=== PATIENT | female | born 1990 | race Two or more races ===

== ENCOUNTER 2017-03-28 17:11 | Inpatient (IN) | payer OTHER, BC ==
[~2017-03-28] VITALS: Ht 162.6 cm; Wt 65.4 kg
[2017-03-28] MEDS ORDERED: SODIUM CHLORIDE FLUSH 10ML SYR IVF ONE (18:00)
[2017-03-28 18:07] LABS: BASOPHILS # (AUTO) 0.04 x10^3/uL (0-0.1); BASOPHILS % (AUTO) 0 % (0-1); EOSINOPHILS # (AUTO) 0.04 x10^3/uL (0-0.4); EOSINOPHILS % (AUTO) 0 % (1-7); LYMPHOCYTES # (AUTO) 1.73 x10^3/uL (1-3.4); LYMPHOCYTES % (AUTO) 16 % (22-44); MD NO; MEAN CORPUSCULAR HGB CONC 33.5 g/dL (32.4-35.8); MEAN CORPUSCULAR VOLUME 98.3 fL (80-100); MEAN PLATELET VOLUME 9.3 fL (7.4-10.4); MONOCYTES # (AUTO) 0.48 x10^3/uL (0.2-0.8); MONOCYTES % (AUTO) 4 % (2-9); NEUTROPHILS # (AUTO) 8.74 x10^3/uL (1.8-6.8); NEUTROPHILS % (AUTO) 79 % (42-75); PLATELET COUNT 182 x10^3/uL (130-400); RED BLOOD COUNT 4.03 x10^6/uL (3.82-5.3); RED CELL DISTRIBUTION WIDTH 12.3 % (9.6-15.2)
[2017-03-28 18:19] LABS: ALANINE AMINOTRANSFERASE 17 U/L (12-78); ALBUMIN 2.9 g/dL (3.4-5.0); ANION GAP 7 mmol/L (5-15); CALCIUM 8.2 mg/dL (8.5-10.1); CHLORIDE 107 mmol/L (98-107)
[2017-03-28 18:22] LABS: ALKALINE PHOSPHATASE 107 U/L (45-117); BILIRUBIN,TOTAL 0.3 mg/dL (0.2-1.0); CREATININE 0.67 mg/dL (0.55-1.02); TOTAL PROTEIN 6.7 g/dL (6.4-8.2)
[2017-03-28 18:54] LABS: INTERNATIONAL NORMALIZED RATIO 0.92 (0.93-1.1); PROTHROMBIN TIME 9.6 Seconds (9.6-11.5)
[2017-03-28 22:54] LABS: MICROSCOPIC INDICATED
[2017-03-28] MEDS ORDERED: SODIUM CHLORIDE FLUSH 10ML SYR IVF PRN (23:00)
[2017-03-28 23:02] LABS: CULTURE INDICATED? YES
[2017-03-28 23:31] VITALS: BP 100/66
[2017-03-29] MEDS ORDERED: DOCUSATE 100 MG CAPSULE PO PRN
[2017-03-29] MEDS ORDERED: hydrALAzine 20 MG/ML, 1ML IVPush PRN
[2017-03-29] MEDS ORDERED: POTASSIUM CHLORIDE 20 MEQ TAB.ER.PRT PO ONE
[2017-03-29 04:19] VITALS: BP 97/64
[2017-03-29 06:05] LABS: BASOPHILS # (AUTO) 0.02 x10^3/uL (0-0.1); BASOPHILS % (AUTO) 0 % (0-1); EOSINOPHILS # (AUTO) 0.06 x10^3/uL (0-0.4); EOSINOPHILS % (AUTO) 1 % (1-7); LYMPHOCYTES % (AUTO) 20 % (22-44); MD NO; MEAN CORPUSCULAR HGB CONC 33.6 g/dL (32.4-35.8); MEAN CORPUSCULAR VOLUME 98.3 fL (80-100); MEAN PLATELET VOLUME 9.9 fL (7.4-10.4); MONOCYTES # (AUTO) 0.66 x10^3/uL (0.2-0.8); MONOCYTES % (AUTO) 7 % (2-9); NEUTROPHILS # (AUTO) 7.06 x10^3/uL (1.8-6.8); NEUTROPHILS % (AUTO) 72 % (42-75); PLATELET COUNT 168 x10^3/uL (130-400); RED BLOOD COUNT 3.76 x10^6/uL (3.82-5.3); RED CELL DISTRIBUTION WIDTH 12.4 % (9.6-15.2)
[2017-03-29 06:16] LABS: ALBUMIN 2.7 g/dL (3.4-5.0); ANION GAP 7 mmol/L (5-15); CHLORIDE 109 mmol/L (98-107)
[2017-03-29 06:19] LABS: ALANINE AMINOTRANSFERASE 16 U/L (12-78); ALKALINE PHOSPHATASE 109 U/L (45-117); BILIRUBIN,TOTAL 0.3 mg/dL (0.2-1.0); CHOLESTEROL, TOTAL 180 mg/dL (140-239); CREATININE 0.51 mg/dL (0.55-1.02); HDL CHOL % 49 % (28-40); HDL CHOLESTEROL (DIRECT) 88 mg/dL (40-60); LDL CHOLESTEROL,CALCULATED 74 mg/dL (54-169); LDL/HDL RATIO 0.8 (0.5-3.0); TOTAL PROTEIN 6.6 g/dL (6.4-8.2); TRIGLYCERIDES 91 mg/dL (50-200); VLDL CHOLESTEROL 18 mg/dL (0-25)
[2017-03-29 06:24] LABS: HEMOGLOBIN A1C 5.2 % (4.2-6.3)
[2017-03-29 06:28] LABS: C-REACTIVE PROTEIN, QUANT 0.26 mg/dL (0.02-0.49); FREE T4 (FREE THYROXINE) 1.21 ng/dL (0.76-1.46); THYROID STIMULATING HORMONE 1.28 mIU/L (0.358-3.740)
[2017-03-29 06:39] LABS: HCT (SEDRATE) 36.9 % (34.6-47.8)
[2017-03-29] MEDS: ACETAMINOPHEN 325 MG TABLET PO PRN ×2 (06:44→16:41)
[2017-03-29 06:55] LABS: THROMBIN TIME 17.3 Seconds (14-19)
[2017-03-29 06:59] VITALS: BP 100/66
[2017-03-29 06:59] LABS: FIBRINOGEN 338 mg/dL (200-340)
[2017-03-29 07:22] LABS: PARTIAL THROMBOPLASTIN TIME 28 Seconds (25-31)
[2017-03-29 08:04] LABS: PROTHROMBIN TIME 9.5 Seconds (9.6-11.5)
[2017-03-29 09:42] VITALS: BP 95/56
[2017-03-29 14:37] VITALS: BP 113/68
[2017-03-29 18:36] VITALS: BP 110/72
== END 2017-03-29 18:51 | disposition home or self-care (01) | DRG 781 ==
LOC: ED 19:54 → EDIP 22:51 → 3NE 23:22
PROVIDERS: ADMIT Internal Medicine; ATTEND Internal Medicine
DX: O26.893 Other specified pregnancy related conditions, third trimester (principal); D68.62 Lupus anticoagulant syndrome; H53.121 Transient visual loss, right eye; O99.113 Other diseases of the blood and blood-forming organs and certain disorders involving the immune mechanism complicating pregnancy, third trimester; E87.6 Hypokalemia; O99.283 Endocrine, nutritional and metabolic diseases complicating pregnancy, third trimester; Z3A.33 33 weeks gestation of pregnancy; Z83.2 Family history of diseases of the blood and blood-forming organs and certain disorders involving the immune mechanism
CPT/HCPCS: 36415; 70540; 80053; 80061; 81001; 81240; 81241; 83036; 83090; 83516; 83520; 83735; 84439; 84443; 85025; 85301; 85302; 85303; 85305; 85306; 85307; 85379; 85384; 85610; 85613; 85651; 85670; 85705; 85730; 85732; 86038; 86140; 86146; 86147; 86148; 86160; 86225; 86235; 86255; 86256; 86376; 86431; 87086; 93880

== ENCOUNTER 2017-05-07 21:35 | Outpatient (CLI) | payer OTHER, BC ==
[~2017-05-07] VITALS: Ht 162.6 cm; Wt 66.0 kg
== END 2017-05-07 22:40 | disposition home or self-care (01) ==
LOC: LDOP 21:35
PROVIDERS: ATTEND Obstetrics & Gynecology
DX: O99.513 Diseases of the respiratory system complicating pregnancy, third trimester (principal); O26.893 Other specified pregnancy related conditions, third trimester; Z3A.39 39 weeks gestation of pregnancy
CPT/HCPCS: 59025; 99211; G0463

== ENCOUNTER 2017-05-09 06:11 | Outpatient (CLI) | payer OTHER, BC ==
[~2017-05-09] VITALS: Ht 162.6 cm; Wt 65.4 kg
[2017-05-09 06:22] VITALS: BP 109/70
[2017-05-09] MEDS ORDERED: PROMETHAZINE 25 MG/ML, 1ML ONE (07:15)
[2017-05-09] MEDS ORDERED: MEPERIDINE/PF 100 MG/ML ONE (07:15)
[2017-05-09] MEDS ORDERED: PROMETHAZINE 25 MG/ML, 1ML IM ONE (07:30)
[2017-05-09] MEDS ORDERED: MEPERIDINE/PF 50 MG/ML IM PRN (07:30)
== END 2017-05-09 09:26 | disposition home or self-care (01) ==
LOC: LDOP 06:11
PROVIDERS: ATTEND Obstetrics & Gynecology
DX: O42.92 Full-term premature rupture of membranes, unspecified as to length of time between rupture and onset of labor (principal); Z3A.39 39 weeks gestation of pregnancy
CPT/HCPCS: 59025; 99211; J2175; J2550; G0463

== ENCOUNTER 2017-05-09 10:23 | Inpatient (IN) | payer OTHER, BC ==
[~2017-05-09] VITALS: Ht 162.6 cm; Wt 65.5 kg
[2017-05-09] MEDS ORDERED: AMPICILLIN 2 GM in SODIUM CHLORIDE 0.9% 100 ML IVPB STA (11:07)
[2017-05-09] MEDS ORDERED: OXYTOCIN 30U/ 0.9% NaCL 500ML 500 ML IV ONE (11:07)
[2017-05-09] MEDS ORDERED: LIDOCAINE 1%, 20ML ONE (11:21)
[2017-05-09] MEDS ORDERED: MISOPROSTOL 200 MCG TABLET ONE (11:21)
[2017-05-09] MEDS ORDERED: OXYTOCIN 30U/ 0.9% NaCL 500ML 500 ML ONE (11:21)
[2017-05-09] MEDS ORDERED: NEWBORN KIT ONE (11:21)
[2017-05-09] MEDS ORDERED: SODIUM CITRATE/CITRIC ACID 30 ML UDC PO PRN (11:30)
[2017-05-09] MEDS: PLEASE ENTER HEIGHT AND WEIGHT MC SCH ×2 (11:30→19:30)
[2017-05-09] MEDS ORDERED: FENTANYL PF 100 MCG/2ML IV PRN (11:30)
[2017-05-09] MEDS ORDERED: FENTANYL PF 100 MCG/2ML IVPush PRN (11:30)
[2017-05-09] MEDS ORDERED: ONDANSETRON 2MG/ML, 2ML IVPush PRN (11:30)
[2017-05-09 11:46] LABS: BASOPHILS # (AUTO) 0.02 x10^3/uL (0-0.1); BASOPHILS % (AUTO) 0 % (0-1); EOSINOPHILS # (AUTO) 0.02 x10^3/uL (0-0.4); EOSINOPHILS % (AUTO) 0 % (1-7); LYMPHOCYTES % (AUTO) 12 % (22-44); MD NO; MEAN CORPUSCULAR HEMOGLOBIN 32.6 pg (27.0-34.8); MEAN CORPUSCULAR VOLUME 95.9 fL (80-100); MEAN PLATELET VOLUME 9.9 fL (7.4-10.4); MONOCYTES # (AUTO) 0.74 x10^3/uL (0.2-0.8); MONOCYTES % (AUTO) 6 % (2-9); NEUTROPHILS # (AUTO) 10.63 x10^3/uL (1.8-6.8); NEUTROPHILS % (AUTO) 82 % (42-75); PLATELET COUNT 181 x10^3/uL (130-400); RED BLOOD COUNT 4.11 x10^6/uL (3.82-5.3); RED CELL DISTRIBUTION WIDTH 12.5 % (9.6-15.2)
[2017-05-09] MEDS ORDERED: FENTANYL PF 100 MCG/2ML ONE (11:59)
[2017-05-09] MEDS ORDERED: LIDOCAINE-MPF 2% ,5ML ONE (14:32)
[2017-05-09] MEDS ORDERED: FENTANYL/BUPIV./NS/PF 250 ML EPIDCONT ONE (14:33)
[2017-05-09] MEDS ORDERED: BUPIVACAINE 0.25% ONE (14:38)
[2017-05-09] MEDS ORDERED: FENTANYL/BUPIV./NS/PF 250 ML EPIDCONT SCH (15:00)
[2017-05-09] MEDS ORDERED: LACTATED RINGERS 1,000 ML IVBOLUS PRN (15:00)
[2017-05-09] MEDS: EPHEDRINE 50 MG/ML, 1ML IVPush PRN ×2 (15:07→23:48)
[2017-05-09] MEDS: LACTATED RINGERS 1,000 ML IV SCH ×4 (15:24→23:39)
[2017-05-09] MEDS ORDERED: OXYTOCIN 30U/ 0.9% NaCL 500ML 500 ML IV PRN (15:29)
[2017-05-09] MEDS: D5%-LACTATED RINGERS 1,000 ML IV SCH ×2 (19:07→23:39)
[2017-05-09 19:30] VITALS: BP 103/63
[2017-05-09] MEDS: AMPICILLIN 1 GM in SODIUM CHLORIDE 0.9% 50 ML IVPB SCH ×2 (19:44→23:44)
[2017-05-10] MEDS ORDERED: SODIUM CITRATE/CITRIC ACID 30 ML UDC ONE (00:06)
[2017-05-10] MEDS: D5%-LACTATED RINGERS 1,000 ML IV SCH ×2 (03:07→11:07)
[2017-05-10] MEDS: AMPICILLIN 1 GM in SODIUM CHLORIDE 0.9% 50 ML IVPB SCH ×4 (03:28→11:30)
[2017-05-10] MEDS ORDERED: ACETAMINOPHEN 325 MG TABLET ONE (03:57)
[2017-05-10] MEDS ORDERED: ACETAMINOPHEN 325 MG TABLET PO PRN (04:00)
[2017-05-10] MEDS: LACTATED RINGERS 1,000 ML IV SCH ×3 (08:00→16:00)
[2017-05-10] MEDS: OXYTOCIN 30U/ 0.9% NaCL 500ML 500 ML IV SCH ×2 (10:14→20:14)
[2017-05-10] MEDS ORDERED: MISOPROSTOL 200 MCG TABLET PR PRN (10:30)
[2017-05-10] MEDS ORDERED: OXYcodone/APAP 5/325MG TABLET PO PRN (10:30)
[2017-05-10 13:45] VITALS: BP 110/69
[2017-05-10] MEDS: OXYcodone/APAP 5/325MG TABLET PO PRN ×2 (15:19→20:47)
[2017-05-10] MEDS: IBUPROFEN 600 MG TABLET PO PRN (15:19)
[2017-05-10 16:30] VITALS: BP 106/73
[2017-05-10 18:54] LABS: BASOPHILS # (AUTO) 0.03 x10^3/uL (0-0.1); BASOPHILS % (AUTO) 0 % (0-1); EOSINOPHILS # (AUTO) 0.06 x10^3/uL (0-0.4); EOSINOPHILS % (AUTO) 1 % (1-7); LYMPHOCYTES # (AUTO) 1.42 x10^3/uL (1-3.4); LYMPHOCYTES % (AUTO) 11 % (22-44); MD NO; MEAN CORPUSCULAR HEMOGLOBIN 33.2 pg (27.0-34.8); MEAN CORPUSCULAR HGB CONC 33.7 g/dL (32.4-35.8); MEAN CORPUSCULAR VOLUME 98.5 fL (80-100); MEAN PLATELET VOLUME 10.2 fL (7.4-10.4); MONOCYTES # (AUTO) 0.88 x10^3/uL (0.2-0.8); MONOCYTES % (AUTO) 7 % (2-9); NEUTROPHILS # (AUTO) 10.68 x10^3/uL (1.8-6.8); NEUTROPHILS % (AUTO) 82 % (42-75); PLATELET COUNT 147 x10^3/uL (130-400); RED BLOOD COUNT 3.46 x10^6/uL (3.82-5.3); RED CELL DISTRIBUTION WIDTH 12.8 % (9.6-15.2)
[2017-05-10 19:38] VITALS: BP 98/58
[2017-05-10] MEDS: DOCUSATE 100 MG CAPSULE PO PRN (20:47)
[2017-05-11 00:14] VITALS: BP 99/60
[2017-05-11 03:40] VITALS: BP 96/64
[2017-05-11] MEDS: IBUPROFEN 600 MG TABLET PO PRN ×3 (04:04→18:11)
[2017-05-11] MEDS: OXYTOCIN 30U/ 0.9% NaCL 500ML 500 ML IV SCH ×2 (06:14→14:00)
[2017-05-11 07:55] VITALS: BP 108/73
[2017-05-11] MEDS: LACTATED RINGERS 1,000 ML IV SCH ×3 (08:00→14:00)
[2017-05-11] MEDS: DOCUSATE 100 MG CAPSULE PO PRN ×2 (08:14→21:05)
[2017-05-11] MEDS: PRENATAL VIT/IRON/FA 1 EACH TABLET PO SCH (08:14)
[2017-05-11] MEDS: OXYcodone/APAP 5/325MG TABLET PO PRN (08:14)
[2017-05-11 11:58] VITALS: BP 108/68
[2017-05-11 20:50] VITALS: BP 96/63
[2017-05-12] MEDS: IBUPROFEN 600 MG TABLET PO PRN ×3 (00:25→13:31)
[2017-05-12] MEDS: OXYTOCIN 30U/ 0.9% NaCL 500ML 500 ML IV SCH ×2 (02:14→12:14)
[2017-05-12] MEDS: PRENATAL VIT/IRON/FA 1 EACH TABLET PO SCH (07:27)
[2017-05-12] MEDS: DOCUSATE 100 MG CAPSULE PO PRN (07:27)
[2017-05-12 07:35] VITALS: BP 123/80
[2017-05-12] MEDS: LACTATED RINGERS 1,000 ML IV SCH ×2 (08:00)
[2017-05-12] MEDS ORDERED: IBUP200T49 PO (12:47)
[2017-05-12] MEDS: OXYcodone/APAP 5/325MG TABLET PO PRN (13:31)
== END 2017-05-12 13:43 | disposition home or self-care (01) | DRG 775 ==
LOC: LDOP 10:23 → LDIP 11:08 → 2NW 05-10 13:16
PROVIDERS: ADMIT Obstetrics & Gynecology; ATTEND Obstetrics & Gynecology
PROC: 10E0XZZ Delivery of Products of Conception, External Approach (ICD-10-PCS; principal; 2017-05-10)
PROC: 0KQM0ZZ Repair Perineum Muscle, Open Approach (ICD-10-PCS; 2017-05-10)
DX: O63.0 Prolonged first stage (of labor) (principal); O70.1 Second degree perineal laceration during delivery; O76 Abnormality in fetal heart rate and rhythm complicating labor and delivery; O99.824 Streptococcus B carrier state complicating childbirth; Z37.0 Single live birth
CPT/HCPCS: 36415; 85025; 86850; 86900; J0290; J3010; J3490; J2590; J7120; J7121

== ENCOUNTER 2018-07-01 19:01 | Emergency (ER) | payer BC, OTHER ==
[~2018-07-01] VITALS: Ht 162.6 cm; Wt 57.4 kg
[~2018-07-01 19:01] MED LIST: IBUP200T49 PO
[2018-07-01 20:00] LABS: MICROSCOPIC NOT IND
[2018-07-01 20:06] LABS: CULTURE INDICATED? NO
[2018-07-01 20:53] LABS: BASOPHILS # (AUTO) 0.04 x10^3/uL (0-0.1); BASOPHILS % (AUTO) 0 % (0-1); EOSINOPHILS # (AUTO) 0.06 x10^3/uL (0-0.4); EOSINOPHILS % (AUTO) 1 % (1-7); LYMPHOCYTES # (AUTO) 2.93 x10^3/uL (1-3.4); LYMPHOCYTES % (AUTO) 30 % (22-44); MD NO; MEAN CORPUSCULAR HEMOGLOBIN 32.3 pg (27.0-34.8); MONOCYTES # (AUTO) 0.59 x10^3/uL (0.2-0.8); MONOCYTES % (AUTO) 6 % (2-9); NEUTROPHILS # (AUTO) 6.15 x10^3/uL (1.8-6.8); NEUTROPHILS % (AUTO) 63 % (42-75); PLATELET COUNT 257 x10^3/uL (130-400); RED BLOOD COUNT 4.38 x10^6/uL (3.82-5.3); RED CELL DISTRIBUTION WIDTH 12.9 % (9.6-15.2)
[2018-07-01 21:04] LABS: ALBUMIN 4.2 g/dL (3.4-5.0); ANION GAP 6 mmol/L (5-15); CALCIUM 9.3 mg/dL (8.5-10.1); CHLORIDE 105 mmol/L (98-107)
[2018-07-01 21:24] LABS: ALANINE AMINOTRANSFERASE 20 U/L (12-78); ALKALINE PHOSPHATASE 88 U/L (45-117); BILIRUBIN,TOTAL 0.2 mg/dL (0.2-1.0); CREATININE 0.74 mg/dL (0.55-1.02); TOTAL PROTEIN 7.7 g/dL (6.4-8.2)
[2018-07-01] MEDS ORDERED: PREN1TAB62 PO (21:56)
[2018-07-01 21:58] VITALS: BP 125/81
== END 2018-07-01 22:01 | disposition home or self-care (01) ==
LOC: ED 21:55
DX: O26.891 Other specified pregnancy related conditions, first trimester (principal); K42.9 Umbilical hernia without obstruction or gangrene; Z3A.01 Less than 8 weeks gestation of pregnancy
CPT/HCPCS: 36415; 76801; 80053; 81003; 84702; 85025; 99284

== ENCOUNTER 2018-07-14 13:32 | Day surgery (SDC) | payer OTHER ==
[~2018-07-14] VITALS: Ht 162.6 cm; Wt 55.9 kg
[~2018-07-14 13:32] MED LIST changes: +BUPIVACAINE/PF-EPI 0.5% 1:200K ONE; +PREN1TAB62 PO
[2018-07-14] MEDS ORDERED: FENTANYL PF 250 MCG/5ML ONE (13:59)
[2018-07-14] MEDS ORDERED: MIDAZOLAM 1 MG/ML, 2ML ONE (13:59)
[2018-07-14 14:17] VITALS: BP 110/71
[2018-07-14] MEDS ORDERED: ACETAMINOPHEN 500 MG TABLET ONE (14:28)
[2018-07-14] MEDS ORDERED: GABAPENTIN 300 MG CAPSULE ONE (14:28)
[2018-07-14 14:29] LABS: HCG UR SG 1.034 (1.003-1.030)
[2018-07-14] MEDS ORDERED: SCOPOLAMINE PATCH, 1.5MG PATCH.TD72 TD ONE ×2 (14:29→14:30)
[2018-07-14] MEDS ORDERED: ACETAMINOPHEN 500 MG TABLET PO ONE (14:30)
[2018-07-14] MEDS ORDERED: GABAPENTIN 300 MG CAPSULE PO ONE (14:30)
[2018-07-14] MEDS ORDERED: LACTATED RINGERS 1,000 ML IV SCH (14:32)
[2018-07-14] MEDS ORDERED: FENTANYL PF 100 MCG/2ML IV PRN (15:00)
[2018-07-14] MEDS ORDERED: PROMETHAZINE 25 MG/ML, 1ML IM PRN ×2 (15:00)
[2018-07-14] MEDS ORDERED: PROMETHAZINE 25 MG SUPP PR PRN (15:00)
[2018-07-14] MEDS ORDERED: PROMETHAZINE 25 MG/ML, 1ML IV PRN (15:00)
[2018-07-14] MEDS ORDERED: HYDROmorphone 2 MG/ML, 1ML IVPush PRN (15:00)
[2018-07-14] MEDS ORDERED: OXYcodone 5 MG/5 ML ORAL.SOL UDC PO PRN ×2 (15:00→16:00)
[2018-07-14] MEDS ORDERED: MEPERIDINE/PF 25MG/0.5ML IVPush PRN (15:00)
[2018-07-14] MEDS ORDERED: MORPHINE SULFATE 4 MG/ML, 1ML IVPush PRN (15:00)
[2018-07-14] MEDS ORDERED: ONDANSETRON 2MG/ML, 2ML IV PRN (15:00)
[2018-07-14] MEDS ORDERED: LABETALOL 5 MG/ML SYRINGE IV PRN (15:00)
[2018-07-14] MEDS ORDERED: hydrALAzine 20 MG/ML, 1ML IV PRN (15:00)
[2018-07-14] MEDS ORDERED: ONDANSETRON ODT 8 MG PO PRN (15:00)
[2018-07-14] MEDS ORDERED: PROMETHAZINE 12.5 MG SUPP PR PRN (15:00)
[2018-07-14] MEDS ORDERED: ONDANSETRON 2MG/ML, 2ML ONE (15:26)
[2018-07-14] MEDS ORDERED: DEXAMETHASONE 4 MG/ML, 1ML ONE (15:26)
[2018-07-14] MEDS ORDERED: ROCURONIUM 10MG/ML,5ML ONE (15:26)
[2018-07-14] MEDS ORDERED: PROPOFOL 10 MG/ML, 20ML ONE (15:26)
[2018-07-14] MEDS ORDERED: GLYCOPYRROLATE 0.2MG/1ML, 5ML ONE (15:26)
[2018-07-14] MEDS ORDERED: CEFAZOLIN 1,000 MG ONE (15:26)
[2018-07-14] MEDS ORDERED: NEOSTIGMINE 1 MG/ML, 10ML ONE (15:26)
[2018-07-14] MEDS ORDERED: MEPERIDINE/PF 25MG/ML,1ML ONE (15:44)
[2018-07-14] MEDS ORDERED: OXYcodone 5 MG/5 ML ORAL.SOL UDC ONE (15:44)
== END 2018-07-14 17:37 | disposition home or self-care (01) ==
LOC: OR 13:32
PROVIDERS: ATTEND Surgery
DX: K42.9 Umbilical hernia without obstruction or gangrene (principal); Z98.890 Other specified postprocedural states
CPT/HCPCS: 49585; 81025; J0690; J1100; J2175; J2250; J2405; J2704; J2710; J3010; J7120

== ENCOUNTER 2019-03-31 10:34 | Emergency (ER) | payer OTHER ==
[~2019-03-31] VITALS: Ht 162.6 cm; Wt 64.8 kg
[~2019-03-31 10:34] MED LIST changes: -BUPIVACAINE/PF-EPI 0.5% 1:200K ONE
--- NOTE | 2019-03-31 10:50 | NUR ---
THIS IS A 29 YO FEMALE WHO PRESENTS TO THE ER C/O COUGH X 3 WEEKS WITH INTERMITTENT SOB STARTING TODAY. PT REPORTS TIGHTNESS AND "STUFFINESS" IN CHEST. PT STATES IT IS WORSE WITH STANDING AND BETTER AT REST. PT ALSO C/O MILD ABD CRAMPING. DENIES DISCHARGE. HEART TONES CHECKED BY L&D RN AND NOTED TO BE 150-165 AND STRONG. PT AO X 4. SKIN PWD. RESP EVEN AND UNLABORED. OCCAISIONAL DRY COUGH NOTED. PT REPORTS HER COUGH IS "50/50 WITH GUNK AND JUST DRY SOME OF THE TIME". PT ABLE TO SPEAK IN FULL 10-12 WORD SENTENCES W/O DIFFICULTY.
[2019-03-31] MEDS ORDERED: SODIUM CHLORIDE 0.9% 1,000ML IVBOLUS ONE (11:00)
[2019-03-31 11:23] LABS: BASOPHILS # (AUTO) 0.02 x10^3/uL (0-0.1); BASOPHILS % (AUTO) 0 % (0-1); EOSINOPHILS # (AUTO) 0.07 x10^3/uL (0-0.4); EOSINOPHILS % (AUTO) 1 % (1-7); LYMPHOCYTES # (AUTO) 1.27 x10^3/uL (1-3.4); LYMPHOCYTES % (AUTO) 14 % (22-44); MD NO; MEAN CORPUSCULAR HEMOGLOBIN 32.9 pg (27.0-34.8); MEAN CORPUSCULAR HGB CONC 33.3 g/dL (32.4-35.8); MEAN CORPUSCULAR VOLUME 98.6 fL (80-100); MEAN PLATELET VOLUME 9.3 fL (7.4-10.4); MONOCYTES % (AUTO) 5 % (2-9); NEUTROPHILS # (AUTO) 7.37 x10^3/uL (1.8-6.8); NEUTROPHILS % (AUTO) 80 % (42-75); PLATELET COUNT 204 x10^3/uL (130-400); RED BLOOD COUNT 3.98 x10^6/uL (3.82-5.3); RED CELL DISTRIBUTION WIDTH 13.3 % (9.6-15.2)
[2019-03-31 11:30] LABS: ALBUMIN 2.7 g/dL (3.4-5.0); ANION GAP 8 mmol/L (5-15); CALCIUM 8.4 mg/dL (8.5-10.1); CHLORIDE 111 mmol/L (98-107)
--- NOTE | 2019-03-31 11:45 | NUR ---
US AT BEDSIDE. PT RESTING ON GURNEY. NAD NOTED. SKIN PWD. RESP EVEN AND UNLABORED. PT ABLE TO SPEAK IN FULL 10-12 WORD SENTENCES W/O DIFFICULTY. PT AO X 4. SKIN PWD. AT BEDSIDE. CALL LIGHT WITHIN REACH. WILL CONT TO MONITOR PT.
--- NOTE | 2019-03-31 12:53 | NUR ---
PT CURRENTLY RESTING ON GURNEY. NAD NOTED. SKIN PWD. RESP EVEN AND UNLABORED. AT BEDSIDE. PT AND AWARE WE ARE WAITING FOR LAB/IMAGING REUSLTS. CALL LIGHT WITHIN REACH. WILL CONT TO MONITOR PT.
--- NOTE | 2019-03-31 13:20 | NUR ---
PT STILL IN IMAGING. Addendum: 03/31/19 at 1320 by JPREMO PT IN IMAGING.
--- NOTE | 2019-03-31 14:00 | NUR ---
PT BACK FROM IMAGING. NAD NOTED. SKIN PWD. RESP EVEN AND UNLABORED. PT ABLE TO SPEAK IN FULL 10-12 WROD SENTENCES W/O DIFFICULTY. PT REQUESTING WATER AND FOOD. OKAY WITH CHRIS TOWNSEND. PT PROVIDED WITH WATER AND BRINGING FOOD.
[2019-03-31 14:38] VITALS: BP 91/53
[2019-03-31] MEDS ORDERED: OMNIPAQUE 350 MG/ML, 100ML BOTTLE ONE (14:45)
== END 2019-03-31 14:41 | disposition home or self-care (01) ==
LOC: ED 12:59
DX: O99.513 Diseases of the respiratory system complicating pregnancy, third trimester (principal); J06.9 Acute upper respiratory infection, unspecified; J45.909 Unspecified asthma, uncomplicated; Z3A.34 34 weeks gestation of pregnancy
CPT/HCPCS: 36415; 71046; 71275; 80048; 82040; 83605; 85025; 85379; 93970; 99284; J7030; Q9967

== ENCOUNTER 2019-03-31 15:00 | Outpatient (CLI) | payer OTHER ==
[~2019-03-31] VITALS: Ht 162.6 cm; Wt 55.0 kg
[2019-03-31 15:31] VITALS: BP 102/64
[2019-03-31] MEDS ORDERED: LOPERAMIDE 2 MG CAPSULE PO PRN (16:00)
[2019-03-31 16:35] LABS: MICROSCOPIC NOT IND
== END 2019-03-31 19:36 | disposition home or self-care (01) ==
LOC: LDOP 15:00
PROVIDERS: ATTEND Obstetrics & Gynecology
DX: O26.893 Other specified pregnancy related conditions, third trimester (principal); R10.9 Unspecified abdominal pain; Z3A.34 34 weeks gestation of pregnancy
CPT/HCPCS: 59025; 81003; 99211; G0463

== ENCOUNTER 2019-04-06 18:17 | Outpatient (CLI) | payer OTHER ==
[~2019-04-06] VITALS: Ht 162.6 cm; Wt 64.5 kg
[2019-04-06 18:45] VITALS: BP 100/62
[2019-04-06] MEDS ORDERED: ONDANSETRON 2MG/ML, 2ML ONE (18:51)
[2019-04-06] MEDS: LACTATED RINGERS 1,000 ML IV SCH ×2 (18:55→20:35)
[2019-04-06] MEDS ORDERED: PLEASE ENTER HEIGHT AND WEIGHT MC SCH (19:00)
[2019-04-06] MEDS ORDERED: ONDANSETRON 2MG/ML, 2ML IVPush PRN (19:00)
[2019-04-06 19:37] LABS: ALANINE AMINOTRANSFERASE 16 U/L (12-78); ALBUMIN 2.7 g/dL (3.4-5.0); ANION GAP 8 mmol/L (5-15); CALCIUM 8.1 mg/dL (8.5-10.1); CHLORIDE 108 mmol/L (98-107); CREATININE 0.59 mg/dL (0.55-1.02)
[2019-04-06 19:39] LABS: ALKALINE PHOSPHATASE 119 U/L (45-117); BILIRUBIN,TOTAL 0.5 mg/dL (0.2-1.0); TOTAL PROTEIN 6.5 g/dL (6.4-8.2)
[2019-04-06 19:54] LABS: BASOPHILS % (AUTO) 0 % (0-1); EOSINOPHILS # (AUTO) 0.02 x10^3/uL (0-0.4); EOSINOPHILS % (AUTO) 0 % (1-7); LYMPHOCYTES # (AUTO) 0.67 x10^3/uL (1-3.4); LYMPHOCYTES % (AUTO) 7 % (22-44); MD NO; MEAN CORPUSCULAR HEMOGLOBIN 32.8 pg (27.0-34.8); MEAN CORPUSCULAR HGB CONC 33.2 g/dL (32.4-35.8); MEAN CORPUSCULAR VOLUME 98.8 fL (80-100); MEAN PLATELET VOLUME 9.5 fL (7.4-10.4); MONOCYTES # (AUTO) 0.39 x10^3/uL (0.2-0.8); MONOCYTES % (AUTO) 4 % (2-9); NEUTROPHILS # (AUTO) 8.58 x10^3/uL (1.8-6.8); NEUTROPHILS % (AUTO) 89 % (42-75); PLATELET COUNT 183 x10^3/uL (130-400); RED BLOOD COUNT 4.06 x10^6/uL (3.82-5.3)
[2019-04-06 20:10] LABS: RAPID INFLUENZA A Negative (Negative); RAPID INFLUENZA B Negative (Negative)
[2019-04-06 20:15] LABS: MICROSCOPIC INDICATED
[2019-04-06] MEDS ORDERED: TERBUTALINE 1 MG/ML, 1ML ONE (20:54)
[2019-04-06] MEDS ORDERED: LACTATED RINGERS 1,000 ML IVBOLUS ONE (21:00)
[2019-04-06] MEDS ORDERED: TERBUTALINE 1 MG/ML, 1ML SQ ONE (21:00)
[2019-04-06] MEDS ORDERED: ONDA4TAB7 PO (22:26)
== END 2019-04-06 22:37 | disposition home or self-care (01) ==
LOC: LDOP 18:17
PROVIDERS: ATTEND Obstetrics & Gynecology
DX: O62.9 Abnormality of forces of labor, unspecified (principal); O21.2 Late vomiting of pregnancy; O09.293 Supervision of pregnancy with other poor reproductive or obstetric history, third trimester; Z3A.35 35 weeks gestation of pregnancy
CPT/HCPCS: 36415; 59025; 80053; 81001; 85025; 87086; 87400; 99211; J2405; J3105; J7120; G0463

== ENCOUNTER 2019-04-29 20:31 | Outpatient (CLI) | payer OTHER ==
[~2019-04-29] VITALS: Ht 162.6 cm; Wt 64.0 kg
[~2019-04-29 20:31] MED LIST changes: +ONDA4TAB7 PO
[2019-04-29] MEDS ORDERED: MEPERIDINE/PF 100 MG/ML ONE (22:52)
[2019-04-29] MEDS ORDERED: MEPERIDINE/PF 100 MG/ML IM PRN (23:00)
[2019-04-29] MEDS ORDERED: PROMETHAZINE 25 MG/ML, 1ML IM ONE (23:00)
[2019-04-30] MEDS ORDERED: IBUP-1222 PO (23:44)
== END 2019-04-29 23:04 | disposition home or self-care (01) ==
LOC: LDOP 20:31
PROVIDERS: ATTEND Obstetrics & Gynecology
DX: O62.9 Abnormality of forces of labor, unspecified (principal); Z3A.38 38 weeks gestation of pregnancy
CPT/HCPCS: 59025; 76819; 96372; 99211; J2175; J2550; G0463

== ENCOUNTER 2019-04-30 03:39 | Inpatient (IN) | payer OTHER ==
[~2019-04-30] VITALS: Ht 162.6 cm; Wt 64.0 kg
[2019-04-30] MEDS ORDERED: NEWBORN KIT ONE (03:47)
[2019-04-30] MEDS ORDERED: OXYTOCIN 30U/ 0.9% NaCL 500ML 500 ML ONE (03:47)
[2019-04-30] MEDS ORDERED: FENTANYL/BUPIV./NS/PF 250 ML EPIDCONT SCH ×2 (03:49→04:46)
[2019-04-30] MEDS ORDERED: LACTATED RINGERS 1,000 ML IV SCH ×2 (03:49→04:46)
[2019-04-30] MEDS ORDERED: OXYTOCIN 30U/ 0.9% NaCL 500ML 500 ML IV ONE (03:49)
[2019-04-30] MEDS ORDERED: D5%-LACTATED RINGERS 1,000 ML IV SCH (03:49)
[2019-04-30] MEDS ORDERED: FENTANYL PF 100 MCG/2ML ONE (03:58)
[2019-04-30] MEDS ORDERED: METOCLOPRAMIDE 5 MG/ML, 2ML IVPush PRN (04:00)
[2019-04-30] MEDS ORDERED: ONDANSETRON 2MG/ML, 2ML IVPush PRN (04:00)
[2019-04-30] MEDS ORDERED: CALCIUM CARBONATE 500 MG TAB.CHEW PO PRN (04:00)
[2019-04-30] MEDS ORDERED: TERBUTALINE 1 MG/ML, 1ML IVPush PRN (04:00)
[2019-04-30] MEDS ORDERED: SODIUM CITRATE/CITRIC ACID 30 ML UDC PO PRN (04:00)
[2019-04-30] MEDS ORDERED: ALUMINUM/MAG/SIMETHICONE 30 ML UDC PO PRN (04:00)
[2019-04-30] MEDS ORDERED: TERBUTALINE 1 MG/ML, 1ML SQ PRN (04:00)
[2019-04-30] MEDS ORDERED: FENTANYL PF 500 MCG, BUPIVACAINE/PF 0.5%, 30ML 62.5 ML in SODIUM CHLORIDE 0.9% 177.5 ML EPIDCONT SCH (04:00)
[2019-04-30] MEDS ORDERED: FENTANYL PF 100 MCG/2ML IVPush PRN (04:00)
[2019-04-30] MEDS ORDERED: FENTANYL PF 100 MCG/2ML IV PRN (04:00)
[2019-04-30 04:15] LABS: MEAN CORPUSCULAR HGB CONC 33.2 g/dL (32.4-35.8); MEAN CORPUSCULAR VOLUME 99.4 fL (80-100); MEAN PLATELET VOLUME 9.8 fL (7.4-10.4); PLATELET COUNT 164 x10^3/uL (130-400); RED BLOOD COUNT 4.07 x10^6/uL (3.82-5.3); RED CELL DISTRIBUTION WIDTH 13.2 % (9.6-15.2)
[2019-04-30] MEDS ORDERED: BUPIVACAINE 0.25% ONE (04:22)
[2019-04-30 04:36] LABS: MD YES
[2019-04-30 04:37] LABS: LYMPH#(MANUAL) 1.34 x10^3/uL (1-3.4); LYMPHS% (MANUAL) 9 % (22-44); MONOS% (MANUAL) 4 % (2-9); SEG#(MANUAL) 12.96 x10^3/uL (1.8-6.8); SEGS% (MANUAL) 87 % (42-75)
[2019-04-30 04:38] LABS: <PLATELET ESTIMATE> ADEQUATE; <PLT MORPHOLOGY> NORMAL PLT MORPH; <RBC MORPHOLOGY> NORMAL
[2019-04-30] MEDS ORDERED: EPHEDRINE 50 MG/ML, 1ML IVPush PRN (05:00)
[2019-04-30] MEDS ORDERED: LACTATED RINGERS 1,000 ML IVBOLUS PRN (05:00)
[2019-04-30] MEDS ORDERED: OXYTOCIN 30U/ 0.9% NaCL 500ML 500 ML IV SCH (10:03)
[2019-04-30] MEDS ORDERED: METHYLERGONOVINE 0.2 MG/ML IM PRN (10:30)
[2019-04-30] MEDS ORDERED: OXYcodone/APAP 5/325MG TABLET PO PRN (10:30)
[2019-04-30] MEDS ORDERED: SIMETHICONE 80 MG CHEW TAB PO PRN (10:30)
[2019-04-30] MEDS ORDERED: ONDANSETRON 2MG/ML, 2ML IV PRN (10:30)
[2019-04-30] MEDS ORDERED: MISOPROSTOL 200 MCG TABLET PR PRN (10:30)
[2019-04-30] MEDS ORDERED: DOCUSATE 100 MG CAPSULE PO PRN (10:30)
[2019-04-30] MEDS ORDERED: ACETAMINOPHEN 325 MG TABLET PO PRN (10:30)
[2019-04-30] MEDS ORDERED: IBUPROFEN 600 MG TABLET ONE (13:54)
[2019-04-30] MEDS: IBUPROFEN 600 MG TABLET PO PRN ×2 (13:55→19:55)
[2019-04-30 14:30] VITALS: BP 100/61
[2019-04-30 20:00] VITALS: BP 100/60
[2019-04-30 22:48] LABS: BASOPHILS # (AUTO) 0.04 x10^3/uL (0-0.1); BASOPHILS % (AUTO) 0 % (0-1); EOSINOPHILS # (AUTO) 0.03 x10^3/uL (0-0.4); EOSINOPHILS % (AUTO) 0 % (1-7); LYMPHOCYTES # (AUTO) 2.38 x10^3/uL (1-3.4); LYMPHOCYTES % (AUTO) 19 % (22-44); MD NO; MEAN CORPUSCULAR HEMOGLOBIN 33.1 pg (27.0-34.8); MEAN CORPUSCULAR HGB CONC 33.6 g/dL (32.4-35.8); MEAN CORPUSCULAR VOLUME 98.4 fL (80-100); MEAN PLATELET VOLUME 10.6 fL (7.4-10.4); MONOCYTES % (AUTO) 6 % (2-9); NEUTROPHILS # (AUTO) 9.36 x10^3/uL (1.8-6.8); NEUTROPHILS % (AUTO) 75 % (42-75); PLATELET COUNT 166 x10^3/uL (130-400); RED CELL DISTRIBUTION WIDTH 13.4 % (9.6-15.2)
[2019-04-30] MEDS ORDERED: IBUP-1222 PO (23:44)
[2019-05-01 00:28] VITALS: BP 98/54
[2019-05-01 04:00] VITALS: BP 101/63
[2019-05-01] MEDS: IBUPROFEN 600 MG TABLET PO PRN (06:26)
[2019-05-01 08:00] VITALS: BP 103/65
[2019-05-01] MEDS ORDERED: PRENATAL VIT/IRON/FA 1 EACH TABLET PO SCH (09:00)
== END 2019-05-01 14:17 | disposition home or self-care (01) | DRG 807 ==
LOC: LDOP 03:39 → LDIP 03:48 → 2NW 14:14
PROVIDERS: ADMIT Obstetrics & Gynecology; ATTEND Obstetrics & Gynecology
PROC: 10E0XZZ Delivery of Products of Conception, External Approach (ICD-10-PCS; principal; 2019-04-30)
PROC: 0KQM0ZZ Repair Perineum Muscle, Open Approach (ICD-10-PCS; 2019-04-30)
PROC: 10907ZC Drainage of Amniotic Fluid, Therapeutic from Products of Conception, Via Natural or Artificial Opening (ICD-10-PCS; 2019-04-30)
PROC: 3E0R3BZ Introduction of Anesthetic Agent into Spinal Canal, Percutaneous Approach (ICD-10-PCS; 2019-04-30)
PROC: 00HU33Z Insertion of Infusion Device into Spinal Canal, Percutaneous Approach (ICD-10-PCS; 2019-04-30)
DX: O70.1 Second degree perineal laceration during delivery (principal); Z37.0 Single live birth; Z3A.38 38 weeks gestation of pregnancy
CPT/HCPCS: 36415; S0020; 85025; 86592; 86850; 86900; G0378; J3010; J7050; J7120

== ENCOUNTER 2019-05-09 08:49 | Inpatient (IN) | payer OTHER ==
[~2019-05-09] VITALS: Ht 162.6 cm; Wt 80.0 kg
[2019-05-09] VITALS (13 sets, daily range): BP systolic 80–131; BP diastolic 44–86
[~2019-05-09 08:49] MED LIST changes: +IBUP-1222 PO
--- NOTE | 2019-05-09 09:21 | NUR ---
PT HERE WITH C/O SEVERE VAG BLEEDING, STARTED AT APPROX. 0900. PT AAO X 4, NAD, ROOM AIR, CALL LIGHT WITHIN REACH AND SIDERAIL X [address] FAMILY AT BEDSIDE. BLOOD NOTED DRIED TO INSIDE OF PT'S LEGS, UNDERWEAR AND PANTS COMPLETELY SATURATED. WHEELCHAIR PT ARRIVED IN SOAKED IN BRIGHT RED BLOOD ALSO. MD AT BEDSIDE AND PLAN FOR PELVIC WITH SUCTION AND 2 LARGE BORE IVS.
[2019-05-09] MEDS ORDERED: SODIUM CHLORIDE 0.9% 1,000ML IVBOLUS ONE ×2 (09:30→10:30)
[2019-05-09] MEDS ORDERED: SODIUM CHLORIDE FLUSH 10ML SYR IVF ONE (09:30)
--- NOTE | 2019-05-09 09:43 | NUR ---
PIV X 1 ESTABLISHED AND LABS DRAWN.
[2019-05-09 09:45] LABS: BASOPHILS # (AUTO) 0.04 x10^3/uL (0-0.1); BASOPHILS % (AUTO) 0 % (0-1); EOSINOPHILS # (AUTO) 0.09 x10^3/uL (0-0.4); EOSINOPHILS % (AUTO) 1 % (1-7); LYMPHOCYTES # (AUTO) 2.07 x10^3/uL (1-3.4); LYMPHOCYTES % (AUTO) 24 % (22-44); MD NO; MEAN CORPUSCULAR HEMOGLOBIN 33.3 pg (27.0-34.8); MEAN CORPUSCULAR HGB CONC 33.8 g/dL (32.4-35.8); MEAN CORPUSCULAR VOLUME 98.6 fL (80-100); MEAN PLATELET VOLUME 9.2 fL (7.4-10.4); MONOCYTES # (AUTO) 0.47 x10^3/uL (0.2-0.8); MONOCYTES % (AUTO) 5 % (2-9); NEUTROPHILS # (AUTO) 6.07 x10^3/uL (1.8-6.8); NEUTROPHILS % (AUTO) 70 % (42-75); PLATELET COUNT 258 x10^3/uL (130-400); RED BLOOD COUNT 4.47 x10^6/uL (3.82-5.3); RED CELL DISTRIBUTION WIDTH 12.9 % (9.6-15.2)
--- NOTE | 2019-05-09 09:50 | NUR ---
PIV X 2 ESTBALISHED BY TASK RN.
[2019-05-09 09:52] LABS: ALANINE AMINOTRANSFERASE 30 U/L (12-78); ALBUMIN 3.1 g/dL (3.4-5.0); ANION GAP 8 mmol/L (5-15); CALCIUM 8.8 mg/dL (8.5-10.1); CHLORIDE 109 mmol/L (98-107); CREATININE 0.86 mg/dL (0.55-1.02)
[2019-05-09 09:54] LABS: ALKALINE PHOSPHATASE 112 U/L (45-117); BILIRUBIN,TOTAL 0.7 mg/dL (0.2-1.0); TOTAL PROTEIN 7.1 g/dL (6.4-8.2)
--- NOTE | 2019-05-09 09:55 | NUR ---
AT BEDSIDE FOR PELVIC.
--- NOTE | 2019-05-09 10:01 | NUR ---
200 BRB SUCTIONED DURING PELVIC, VSS.
--- NOTE | 2019-05-09 10:06 | NUR ---
dr bennett spoke with dr louis motion picture printer for dr wong
--- NOTE | 2019-05-09 10:09 | NUR ---
BLOOD BANK CONTACTED, TYPE AND CROSS STILL IN PROCESS. PER ADY, BLOOD BANK TO HOLD TWO UNITS RBCS WHEN TYPE AND CROSS COMPLETED. BLOOD BANK NOTIFIED ON POC, IF NEED TO INFUSE, BOTH UNITS TO INFUSE AT THE SAME TIME. PER ADY, OB TO SEE PT, PLAN FOR POSSIBLE OR EMERGENTLY. BOAT DOCK OPERATOR NOTIFIED. PURPLE SLIP TUBED, WHO FORM COMPLETED, PT UNDRESSED AND ALL JEWELRY REMOVED AND GIVEN TO FAMILY. PT ON FULL MONITOR.
[2019-05-09] MEDS ORDERED: TRANEXAMIC ACID 100 MG/ML, 10ML ONE (10:17)
[2019-05-09] MEDS ORDERED: ONDANSETRON 2MG/ML, 2ML IVPush ONE (10:30)
[2019-05-09] MEDS ORDERED: MORPHINE SULFATE 4 MG/ML, 1ML ONE (10:30)
[2019-05-09] MEDS ORDERED: MISOPROSTOL 200 MCG TABLET PO ONE (10:30)
[2019-05-09] MEDS ORDERED: TRANEXAMIC ACID 1,000 MG in SODIUM CHLORIDE 0.9% 100 ML IV ONE (10:30)
[2019-05-09] MEDS ORDERED: MORPHINE SULFATE 4 MG/ML, 1ML IVPush ONE (10:30)
[2019-05-09] MEDS ORDERED: ONDANSETRON 2MG/ML, 2ML ONE ×3 (10:36→11:42)
--- NOTE | 2019-05-09 10:39 | NUR ---
PT MEDICATED PER ORDERS, MED REQUEST TUBED TO PHARMACY.
--- NOTE | 2019-05-09 10:53 | NUR ---
TASK RN: PER SWETHA Retana RN, CYTOTEC NOT GIVEN PER V/O BY DR SHAHID
--- NOTE | 2019-05-09 10:54 | NUR ---
DR SHAHID AT BEDSIDE TO EVAL PT
--- NOTE | 2019-05-09 10:54 | NUR ---
PT SR PER MONITOR. NS AND TXA INFUSING
--- NOTE | 2019-05-09 11:02 | NUR ---
BP 65/38, DR. GARSIA NOTIFIED AND PT MOVED TO TR. BLOOD BANK CONTACTED AND BLOOD REQUESTED AND TUBED. TWO UNITS VERIFIED, CONSENT SIGNED. DR. SHAHID AT BEDSIDE FOR DISCUSSION OF PLAN OF CARE. PT TO GO TO OR. REPORT GIVNE TO OR NUSE VIA PHONE.
--- NOTE | 2019-05-09 11:02 | NUR ---
CONSENT FOR BLOOD TRANSFUSION SIGNED. PTS AND FAMILY AT BEDSIDE. PT SR PER MONITOR.
--- NOTE | 2019-05-09 11:03 | NUR ---
BEDSIDE REPORT GIVEN TO JOHN RN.
--- NOTE | 2019-05-09 11:13 | NUR ---
1ST UNIT OF PRBC'S INFUSING VIA LEVEL 1 INFUSER. PT TO OR VIA RAUL.
[2019-05-09 11:22] LABS: INTERNATIONAL NORMALIZED RATIO 0.95 (0.93-1.1); PROTHROMBIN TIME 10.1 Seconds (9.6-11.5)
[2019-05-09] MEDS ORDERED: MIDAZOLAM 1 MG/ML, 2ML ONE (11:34)
[2019-05-09] MEDS ORDERED: FENTANYL PF 100 MCG/2ML ONE ×2 (11:34→13:00)
[2019-05-09] MEDS ORDERED: ROCURONIUM 10MG/ML,5ML ONE (11:37)
[2019-05-09] MEDS ORDERED: SUCCINYLCHOLINE 20 MG/ML, 10ML ONE (11:37)
[2019-05-09] MEDS ORDERED: DEXAMETHASONE 4 MG/ML, 1ML ONE ×2 (11:42)
[2019-05-09] MEDS ORDERED: PROPOFOL 10 MG/ML, 20ML ONE (11:42)
--- NOTE | 2019-05-09 11:45 | NUR ---
PT GIVEN 1ST UNIT OF BLOOD AT 1101 AND FINSIHED INFUSING AT 1125. 3 SET OF VS CHARTED. NO ADVERSE REACTIONS NOTED AT THIS TIME. PT DENIES ITCHING OR PAIN. RESP EVEN AND UNLABORED. PT ON FLUID WARMER WITH LEVEL 1 INFUSER. AND FAMILY AT BEDSIDE. PT AND AND FAMILY VERBALIZE UNDERSTANDING OF POC WITH HYDRAULIC OIL TOOL OPERATOR AND CUSTOMER DEVELOPMENT REPRESENTATIVE ZEHRA AT BEDSIDE. SECOND UNIT STARTED IMMEDIATELY AT 1125. 3 SETS OF VS CHARTED. SECOND UNIT STILL INFUSING PT WAS TAKEN BACK TO OR AT APPROX 1145. Addendum: 05/09/19 at 1205 by JPREMO PT GIVEN 1ST UNIT OF BLOOD AT 1101 AND FINSIHED INFUSING AT 1125. 3 SET OF VS CHARTED. NO ADVERSE REACTIONS NOTED AT THIS TIME. PT DENIES ITCHING OR PAIN. RESP EVEN AND UNLABORED. PT ON FLUID WARMER WITH LEVEL 1 INFUSER. AND FAMILY AT BEDSIDE. PT AND AND FAMILY VERBALIZE UNDERSTANDING OF POC WITH HYDRAULIC OIL TOOL OPERATOR AND CUSTOMER DEVELOPMENT REPRESENTATIVE ZEHRA AT BEDSIDE. SECOND UNIT STARTED IMMEDIATELY AT 1125. 2ND UNIT VERIFIED WITH TRISHA BECKER IN ER AND AGAIN WITH [employer]ZMAT TANKER DRIVERTRISHA Barbosa. 3 SETS OF VS CHARTED. SECOND UNIT STILL INFUSING PT WAS TAKEN BACK TO OR AT APPROX 1145.
--- NOTE | 2019-05-09 11:46 | NUR ---
RN WENT TO PRE-OP WITH PT. PT ON LEVEL 1 INFUSER FOR 2 UNITS OF BLOOD STAT PER RA GARSIA. 1ST UNIT INFUSED AND SECOND UNIT STILL INFUSING WHEN PT TAKEN BACK TO OR.
[2019-05-09] MEDS ORDERED: METHYLERGONOVINE 0.2 MG/ML IM ONE (12:29)
[2019-05-09] MEDS ORDERED: OXYTOCIN 10 UNITS/ML, 1ML ONE ×2 (12:29→12:31)
[2019-05-09] MEDS ORDERED: LABETALOL 5MG/ML, 20ML IV PRN (12:30)
[2019-05-09] MEDS ORDERED: HALOPERIDOL 5 MG/ML IV PRN (12:30)
[2019-05-09] MEDS ORDERED: MEPERIDINE/PF 25MG/ML,1ML IVPush PRN (12:30)
[2019-05-09] MEDS ORDERED: HYDROmorphone 2 MG/ML, 1ML IVPush PRN (12:30)
[2019-05-09] MEDS ORDERED: DIAZEPAM 5 MG/ML, 2ML IVPush PRN (12:30)
[2019-05-09] MEDS ORDERED: MIDAZOLAM 1 MG/ML, 2ML IV PRN (12:30)
[2019-05-09] MEDS ORDERED: OXYcodone 5 MG/5 ML ORAL.SOL UDC PO PRN (12:30)
[2019-05-09] MEDS ORDERED: ALBUTEROL SULFATE 2.5 MG/3 ML NPPB PRN (12:30)
[2019-05-09] MEDS ORDERED: PROMETHAZINE 12.5 MG SUPP PR PRN (12:30)
[2019-05-09] MEDS ORDERED: ACETAMINOPHEN 325 MG TABLET PO PRN (12:30)
[2019-05-09] MEDS ORDERED: PROMETHAZINE 25 MG/ML, 1ML IV PRN (12:30)
[2019-05-09] MEDS ORDERED: EPHEDRINE 50 MG/ML, 1ML IVPush PRN (12:30)
[2019-05-09] MEDS ORDERED: hydrALAzine 20 MG/ML, 1ML IV PRN (12:30)
[2019-05-09] MEDS ORDERED: ONDANSETRON ODT 8 MG PO PRN (12:30)
[2019-05-09] MEDS ORDERED: CALCIUM CHLORIDE 10%, 10ML SYR ONE (13:03)
[2019-05-09] MEDS: FENTANYL PF 100 MCG/2ML IV PRN ×4 (13:45→14:12)
[2019-05-09] MEDS: SODIUM CHLORIDE 0.9% IV SCH ×2 (14:00→21:02)
[2019-05-09] MEDS: OXYTOCIN IV SCH ×2 (14:00→21:02)
[2019-05-09] MEDS ORDERED: OXYcodone 5 MG/5 ML ORAL.SOL UDC ONE (15:13)
[2019-05-09] MEDS ORDERED: IBUPROFEN 600 MG TABLET ONE ×2 (15:13→20:59)
[2019-05-09] MEDS ORDERED: ACETAMINOPHEN 325 MG TABLET ONE ×3 (15:14→22:35)
[2019-05-09] MEDS: D5%-0.45NACL+KCL 20MEQ 1,000 ML IV SCH (15:20)
[2019-05-09] MEDS: ACETAMINOPHEN 325 MG TABLET PO SCH ×2 (15:21→22:36)
[2019-05-09] MEDS: IBUPROFEN 600 MG TABLET PO SCH ×2 (15:21→21:04)
[2019-05-09] MEDS ORDERED: OXYcodone IR 5MG TABLET ONE ×2 (15:25→22:34)
[2019-05-09] MEDS: OXYcodone IR 5MG TABLET PO PRN ×2 (15:27→22:37)
[2019-05-09] MEDS ORDERED: BISACODYL 10 MG SUPP PR PRN (15:30)
[2019-05-09] MEDS ORDERED: INSTRUCTION SEE COMMENTS XX PRN (15:30)
[2019-05-09] MEDS ORDERED: ACETAMINOPHEN 325 MG TABLET PO SCH (15:30)
[2019-05-09] MEDS ORDERED: morphine SULFATE 10 MG/ML, 1ML IV PRN (15:30)
[2019-05-09] MEDS ORDERED: ONDANSETRON 2MG/ML, 2ML IV PRN (15:30)
[2019-05-09] MEDS ORDERED: DOCUSATE 100 MG CAPSULE ONE (20:59)
[2019-05-09] MEDS ORDERED: SENNA/DOCUSATE TABLET ONE (20:59)
[2019-05-09] MEDS: CEFAZOLIN PMX 2GM/50ML 50 ML IVPB SCH (21:02)
[2019-05-09] MEDS: DOCUSATE 100 MG CAPSULE PO SCH (21:03)
[2019-05-09] MEDS: SENNA/DOCUSATE TABLET PO SCH (21:03)
[2019-05-09] MEDS: METHYLERGONOVINE 0.2MG TABLET PO SCH (21:04)
[2019-05-10 00:14] VITALS: BP 105/61
[2019-05-10] MEDS ORDERED: ACETAMINOPHEN 325 MG TABLET ONE ×3 (03:41→16:49)
[2019-05-10] MEDS: D5%-0.45NACL+KCL 20MEQ 1,000 ML IV SCH (03:43)
[2019-05-10] MEDS: ACETAMINOPHEN 325 MG TABLET PO SCH ×4 (03:43→21:32)
[2019-05-10 04:00] VITALS: BP 100/62
[2019-05-10] MEDS ORDERED: METHYLERGONOVINE 0.2MG TABLET ONE (05:19)
[2019-05-10] MEDS ORDERED: IBUPROFEN 600 MG TABLET ONE ×4 (05:19→22:49)
[2019-05-10] MEDS: METHYLERGONOVINE 0.2MG TABLET PO SCH ×2 (05:20→12:54)
[2019-05-10] MEDS: IBUPROFEN 600 MG TABLET PO SCH ×4 (05:20→23:00)
[2019-05-10] MEDS: CEFAZOLIN PMX 2GM/50ML 50 ML IVPB SCH (05:20)
[2019-05-10] MEDS ORDERED: OXYcodone IR 5MG TABLET ONE ×3 (05:28→16:49)
[2019-05-10] MEDS: OXYcodone IR 5MG TABLET PO PRN ×3 (05:29→17:19)
[2019-05-10 05:37] LABS: ALBUMIN 2.2 g/dL (3.4-5.0); ANION GAP 6 mmol/L (5-15); CALCIUM 7.5 mg/dL (8.5-10.1); CHLORIDE 108 mmol/L (98-107)
[2019-05-10 05:43] LABS: ALANINE AMINOTRANSFERASE 23 U/L (12-78); ALKALINE PHOSPHATASE 62 U/L (45-117); BILIRUBIN,TOTAL 0.9 mg/dL (0.2-1.0); CREATININE 0.59 mg/dL (0.55-1.02); TOTAL PROTEIN 4.9 g/dL (6.4-8.2)
[2019-05-10 05:46] LABS: MEAN CORPUSCULAR HEMOGLOBIN 29.4 pg (27.0-34.8); MEAN CORPUSCULAR VOLUME 89.1 fL (80-100); PLATELET COUNT 190 x10^3/uL (130-400); RED BLOOD COUNT 3.79 x10^6/uL (3.82-5.3); RED CELL DISTRIBUTION WIDTH 22.6 % (9.6-15.2)
[2019-05-10 06:26] LABS: MD YES
[2019-05-10 06:27] LABS: <PLATELET ESTIMATE> ADEQUATE; <PLT MORPHOLOGY> NORMAL PLT MORPH; ANISOCYTOSIS 1+; LYMPH#(MANUAL) 1.52 x10^3/uL (1-3.4); LYMPHS% (MANUAL) 16 % (22-44); MONOS#(MANUAL) 0.86 x10^3/uL (0.3-2.7); MONOS% (MANUAL) 9 % (2-9); SEG#(MANUAL) 7.13 x10^3/uL (1.8-6.8); SEGS% (MANUAL) 75 % (42-75)
[2019-05-10 08:00] VITALS: BP 106/73
[2019-05-10] MEDS ORDERED: DOCUSATE 100 MG CAPSULE ONE (09:24)
[2019-05-10] MEDS: DOCUSATE 100 MG CAPSULE PO SCH ×2 (09:29→21:00)
[2019-05-10 13:20] VITALS: BP 105/61
[2019-05-10 18:23] LABS: BASOPHILS # (AUTO) 0.05 x10^3/uL (0-0.1); BASOPHILS % (AUTO) 1 % (0-1); EOSINOPHILS % (AUTO) 1 % (1-7); LYMPHOCYTES # (AUTO) 2.92 x10^3/uL (1-3.4); LYMPHOCYTES % (AUTO) 33 % (22-44); MD NO; MEAN CORPUSCULAR HEMOGLOBIN 29.6 pg (27.0-34.8); MEAN CORPUSCULAR HGB CONC 33.6 g/dL (32.4-35.8); MEAN CORPUSCULAR VOLUME 88.1 fL (80-100); MEAN PLATELET VOLUME 8.6 fL (7.4-10.4); MONOCYTES # (AUTO) 0.47 x10^3/uL (0.2-0.8); MONOCYTES % (AUTO) 5 % (2-9); NEUTROPHILS % (AUTO) 60 % (42-75); PLATELET COUNT 198 x10^3/uL (130-400); RED BLOOD COUNT 3.69 x10^6/uL (3.82-5.3); RED CELL DISTRIBUTION WIDTH 21.9 % (9.6-15.2)
[2019-05-10 19:44] VITALS: BP 117/58
[2019-05-10] MEDS ORDERED: SENNA/DOCUSATE TABLET ONE (22:48)
[2019-05-10] MEDS: SENNA/DOCUSATE TABLET PO SCH (22:59)
[2019-05-11] MEDS ORDERED: ACETAMINOPHEN 325 MG TABLET PO SCH ×2 (04:30→05:30)
[2019-05-11] MEDS ORDERED: IBUPROFEN 600 MG TABLET PO SCH ×2 (04:30→05:30)
[2019-05-11 05:17] LABS: BASOPHILS # (AUTO) 0.01 x10^3/uL (0-0.1); BASOPHILS % (AUTO) 0 % (0-1); EOSINOPHILS # (AUTO) 0.13 x10^3/uL (0-0.4); EOSINOPHILS % (AUTO) 2 % (1-7); LYMPHOCYTES # (AUTO) 2.75 x10^3/uL (1-3.4); LYMPHOCYTES % (AUTO) 38 % (22-44); MD NO; MEAN CORPUSCULAR HEMOGLOBIN 29.3 pg (27.0-34.8); MEAN CORPUSCULAR VOLUME 88.9 fL (80-100); MEAN PLATELET VOLUME 8.9 fL (7.4-10.4); MONOCYTES # (AUTO) 0.48 x10^3/uL (0.2-0.8); MONOCYTES % (AUTO) 7 % (2-9); NEUTROPHILS # (AUTO) 3.98 x10^3/uL (1.8-6.8); NEUTROPHILS % (AUTO) 54 % (42-75); PLATELET COUNT 180 x10^3/uL (130-400); RED BLOOD COUNT 3.41 x10^6/uL (3.82-5.3); RED CELL DISTRIBUTION WIDTH 21.8 % (9.6-15.2)
[2019-05-11] MEDS ORDERED: ACETAMINOPHEN 325 MG TABLET ONE (05:25)
[2019-05-11] MEDS ORDERED: IBUPROFEN 600 MG TABLET ONE (05:25)
== END 2019-05-11 08:15 | disposition home or self-care (01) | DRG 769 ==
LOC: ED 10:34 → EDIP 11:11 → UNDOADMIN 11:11 → LDIP 14:53
PROVIDERS: ADMIT Student in an Organized Health Care Education/Training Program; ATTEND Student in an Organized Health Care Education/Training Program
PROC: 0W3R7ZZ Control Bleeding in Genitourinary Tract, Via Natural or Artificial Opening (ICD-10-PCS; 2019-05-09)
PROC: 0KQM0ZZ Repair Perineum Muscle, Open Approach (ICD-10-PCS; 2019-05-09)
PROC: 30233K1 Transfusion of Nonautologous Frozen Plasma into Peripheral Vein, Percutaneous Approach (ICD-10-PCS; 2019-05-09)
PROC: 30233N1 Transfusion of Nonautologous Red Blood Cells into Peripheral Vein, Percutaneous Approach (ICD-10-PCS; 2019-05-09)
PROC: 30233R1 Transfusion of Nonautologous Platelets into Peripheral Vein, Percutaneous Approach (ICD-10-PCS; 2019-05-09)
PROC: 10D17ZZ Extraction of Products of Conception, Retained, Via Natural or Artificial Opening (ICD-10-PCS; principal; 2019-05-09 11:30)
DX: O72.0 Third-stage hemorrhage (principal); O75.1 Shock during or following labor and delivery; J45.909 Unspecified asthma, uncomplicated; O99.53 Diseases of the respiratory system complicating the puerperium; O70.1 Second degree perineal laceration during delivery
CPT/HCPCS: 36415; 76856; 80053; 85014; 85018; 85025; 85384; 85610; 85730; 86850; 86900; 86923; 88305; 94640; 96361; 96365; 96375; 99291; G0378; J0690; J1100; J2250; J2405; J2704; J3010; J0330; J2175; J2210; J2270; J2590; J3480; J7030; P9016; P9017; P9035